=== PATIENT | female | born 1995 | race Caucasian/White ===

== ENCOUNTER 2017-07-30 10:53 | Emergency (ER) | payer OTHER ==
[2017-07-30 11:18] LABS: URINE HCG POC HCG NEGATIVE (Negative)
[2017-07-30 11:46] LABS: BASO % 0 % (0-3); EOS % 0 % (0-3); HEMATOCRIT 36.6 % (36.0-47.0); HEMOGLOBIN 11.8 g/dL (12.0-15.5); LYMPH # 0.5 x10^3/uL (1.0-4.8); LYMPH % 3 % (24-48); MEAN CORPUSCULAR HEMOGLOBIN 25 pg (25-35); MEAN CORPUSCULAR HGB CONC 32 g/dL (31-37); MEAN CORPUSCULAR VOLUME 77 fL (79-100); MONO % 6 % (0-9); NEUT % 91 % (31-73); PLATELET COUNT 246 x10^3/uL (140-400); RED BLOOD COUNT 4.74 x10^6/uL (3.50-5.40); RED CELL DISTRIBUTION WIDTH 18.4 % (11.5-14.5)
[2017-07-30 11:47] LABS: ADD MAN DIFF? YES
[2017-07-30 11:48] LABS: BILIRUBIN,URINE NEGATIVE (NEG); GLUCOSE,URINE NEGATIVE (NEG); NITRITE,URINE POSITIVE (NEG); PROTEIN,URINE 100 mg/dL (NEG-TRACE); UROBILINOGEN,URINE 0.2 mg/dL (0.2 mg/dL)
[2017-07-30 11:56] LABS: BACTERIA,URINE MANY /HPF (0-FEW); SQUAMOUS EPITHELIAL CELL,UR MOD /LPF; WBC,URINE TNTC /HPF (0-4)
[2017-07-30 11:57] LABS: ANION GAP 13 (6-14); BLOOD UREA NITROGEN 8 mg/dL (7-20); BUN/CREATININE RATIO 8 (6-20); CALCIUM 8.7 mg/dL (8.5-10.1); CARBON DIOXIDE 25 mmol/L (21-32); CHLORIDE 100 mmol/L (98-107); GLUCOSE 151 mg/dL (70-99); POTASSIUM 3.8 mmol/L (3.5-5.1); SODIUM 138 mmol/L (136-145)
[2017-07-30 12:02] LABS: ALBUMIN 3.9 g/dL (3.4-5.0); ALK PHOS 104 U/L (46-116); ALT (SGPT) 27 U/L (14-59); AST (SGOT) 17 U/L (15-37); TOTAL BILIRUBIN 0.8 mg/dL (0.2-1.0); TOTAL PROTEIN 7.8 g/dL (6.4-8.2)
[2017-07-30] MEDS: ONDANSETRON PF 4 MG/2 ML VIAL. IV (13:00)
[2017-07-30] MEDS: IV NORMAL SALINE 1000ML BAG 1,000 ML IV ×2 (13:00→14:20)
[2017-07-30 13:19] LABS: ANISOCYTOSIS SLIGHT; MICROCYTOSIS SLIGHT; PLT ESTIMATE ADEQUATE (ADEQUATE)
[2017-07-30 13:20] LABS: OVALOCYTES FEW
[2017-07-30] MEDS: ACETAMINOPHEN 500 MG TABLET PO (14:25)
== END 2017-07-30 15:49 | disposition home or self-care (01) ==
LOC: ER 10:53
DX: N12 Tubulo-interstitial nephritis, not specified as acute or chronic (principal); N39.0 Urinary tract infection, site not specified
CPT/HCPCS: 36415; 80053; 81001; 81025; 85007; 85025; 87086; 87186; 96361; 96365; 96375; 99284-25; J0690; J2405; J7030

== ENCOUNTER 2018-04-20 18:03 | Emergency (ER) | payer SELFPAY ==
[~2018-04-20] VITALS: Ht 167.6 cm; Wt 45.4 kg
[~2018-04-20 18:03] MED LIST: CIPR500T94 PO; DOCU-109 PO; IBUP200T44 PO; ONDA4TAB10 SL; OXYC-323 PO; SERT100T PO
[2018-04-20] MEDS ORDERED: ONDANSETRON PF 4 MG/2 ML VIAL. IV ONE (19:00)
[2018-04-20] MEDS ORDERED: IV NORMAL SALINE 1000ML BAG 1,000 ML IV ONE (19:00)
[2018-04-20] MEDS ORDERED: ACETAMINOPHEN 500 MG TABLET PO ONE (19:30)
[2018-04-20 19:50] LABS: BASO % 0 % (0-3); EOS % 0 % (0-3); HEMATOCRIT 39.9 % (36.0-47.0); LYMPH # 0.8 x10^3/uL (1.0-4.8); LYMPH % 8 % (24-48); MEAN CORPUSCULAR HEMOGLOBIN 31 pg (25-35); MEAN CORPUSCULAR HGB CONC 35 g/dL (31-37); MEAN CORPUSCULAR VOLUME 89 fL (79-100); MONO # 0.8 x10^3/uL (0.0-1.1); MONO % 8 % (0-9); NEUT # 9.5 x10^3uL (1.8-7.7); NEUT % 85 % (31-73); PLATELET COUNT 209 x10^3/uL (140-400); RED CELL DISTRIBUTION WIDTH 12.7 % (11.5-14.5); WHITE BLOOD COUNT 11.2 x10^3/uL (4.0-11.0)
[2018-04-20 19:58] LABS: CALCIUM 9.3 mg/dL (8.5-10.1); CREATININE 0.8 mg/dL (0.6-1.0); GFR 89.7; POTASSIUM 3.7 mmol/L (3.5-5.1)
[2018-04-20 20:03] LABS: ALBUMIN 3.5 g/dL (3.4-5.0); ALBUMIN/GLOBULIN RATIO 0.8 (1.0-1.7); TOTAL PROTEIN 7.7 g/dL (6.4-8.2)
[2018-04-20 20:31] LABS: BILIRUBIN,URINE NEGATIVE (NEG); CLARITY,URINE CLEAR; COLOR,URINE YELLOW; NITRITE,URINE POSITIVE (NEG); PH,URINE 6.5; PROTEIN,URINE 30 mg/dL (NEG-TRACE)
[2018-04-20 20:37] LABS: BACTERIA,URINE MANY /HPF (0-FEW); RBC,URINE OCC /HPF (0-2); SQUAMOUS EPITHELIAL CELL,UR MANY /LPF; WBC,URINE >40 /HPF (0-4)
[2018-04-20 21:00] VITALS: BP 104/57
--- NOTE | 2018-04-20 21:04 | RAD ---
CT abdomen and pelvis without contrast: Reason for examination: Flank pain. Helical images were obtained through the abdomen pelvis with no intravenous or oral contrast administered. Reconstruction was performed in sagittal and coronal planes. The examination is compromised by streak artifact from right and screws in the thoracolumbar spine. Exposure: One or more of the following individualized dose reduction techniques were utilized for this examination: 1. Automated exposure control 2. Adjustment of the mA and/or kV according to patient size 3. Use of iterative reconstruction technique. The lung bases are clear. The heart size is normal with no pericardial effusion. No abnormalities seen at the liver, spleen, adrenal glands or pancreas. The kidneys show no renal masses, renal calculi, hydronephrosis or evidence of obstructive uropathy. The intestinal tract does not appear to be abnormally distended and no abnormal wall thickening is seen. No diverticulosis or diverticulitis is evident. The bladder is not distended. IUD is seen in the uterus. No adnexal masses are seen. The limited amount of intra-abdominal fat the appendix is not identified. There is a thoracolumbar scoliosis with rods and screws present. No acute bony abnormalities are seen. IMPRESSION: Limited examination due to streak artifact from hardware in the thoracolumbar spine region. No renal calculi, hydronephrosis or evidence of obstructive uropathy. No other focal abnormality seen in the abdomen or pelvis. Electronically signed by: Ying Sood MD (04/20/2018 9:01 PM) [facility]
--- NOTE | 2018-04-20 21:19 | PHYS DOC ---
Past Medical History Past Medical History: Other Additional Past Medical Histor: scoliosis Past Surgical History: Other Additional Past Surgical Histo: SCOLIOSIS SX, hernia sx Alcohol Use: Occasionally Drug Use: Marijuana Adult General Chief Complaint Chief Complaint: Congestion HPI HPI Patient is 23-year-old female that presents for evaluation of fever, cough, left ear pain, and bilateral flank pain. She reports symptoms started yesterday. She denies abdominal or chest pain. Review of Systems Review of Systems Eyes: Denies change in visual acuity, redness, or eye pain [] HENT: Denies nasal congestion or sore throat [] Respiratory: Denies cough or shortness of breath [] Cardiovascular: No additional information not addressed in HPI [] GI: Denies abdominal pain, nausea, vomiting, bloody stools or diarrhea [] : Denies dysuria or hematuria [] Neurologic: Denies headache, focal weakness or sensory changes [] Endocrine: Denies polyuria or polydipsia [] All other systems were reviewed and found to be within normal limits, except as documented in this note. Current Medications Current Medications Current Medications Medications (Trade) Dose Ordered Sig/Yoana Start Time Stop Time Status Last Admin Dose Admin Acetaminophen (Tylenol) 1,000 mg 1X ONCE 04/20/18 19:30 04/20/18 19:35 DC 04/20/18 19:51 1,000 MG Ondansetron HCl (Zofran) 4 mg 1X ONCE 04/20/18 19:00 04/20/18 19:04 DC 04/20/18 19:51 4 MG Sodium Chloride 1,000 ml @ 1,000 mls/hr 1X ONCE 04/20/18 19:00 04/20/18 19:59 DC 04/20/18 19:50 1,000 MLS/HR Allergies Allergies Allergies Coded Allergies Type Severity Reaction Last Updated Verified No Known Drug Allergies 06/17/14 No Physical Exam Physical Exam Constitutional: Well developed, well nourished, no acute distress, non-toxic appearance. [] HENT: Normocephalic, atraumatic, bilateral external ears normal, oropharynx moist, no oral exudates, nose normal. [] Eyes: PERRLA, EOMI, conjunctiva normal, no discharge. [] Neck: Normal range of motion, no tenderness, supple, no stridor. [] Cardiovascular:Heart rate regular rhythm, no murmur [] Lungs & Thorax: Bilateral breath sounds clear to auscultation [] Abdomen: Bowel sounds normal, soft, no tenderness, no masses, no pulsatile masses. [] Skin: Warm, dry, no erythema, no rash. [] Back: CVA tenderness bilaterally[] Extremities: No tenderness, no cyanosis, no clubbing, ROM intact, no edema. [] Neurologic: Alert and oriented X 3, normal motor function, normal sensory function, no focal deficits noted. [] Psychologic: Affect normal, judgement normal, mood normal. [] Current Patient Data Vital Signs Vital Signs Date Time Temp Pulse Resp B/P (MAP) Pulse Ox O2 Delivery O2 Flow Rate FiO2 04/20/18 19:00 100.8 115 18 134/75 (94) 97 Room Air 100.8 Lab Values Laboratory Tests Test 04/20/18 19:43 04/20/18 20:24 04/20/18 20:25 White Blood Count 11.2 x10^3/uL (4.0-11.0) H Red Blood Count 4.50 x10^6/uL (3.50-5.40) Hemoglobin 14.0 g/dL (12.0-15.5) Hematocrit 39.9 % (36.0-47.0) Mean Corpuscular Volume 89 fL (79-100) Mean Corpuscular Hemoglobin 31 pg (25-35) Mean Corpuscular Hemoglobin Concent 35 g/dL (31-37) Red Cell Distribution Width 12.7 % (11.5-14.5) Platelet Count 209 x10^3/uL (140-400) Neutrophils (%) (Auto) 85 % (31-73) H Lymphocytes (%) (Auto) 8 % (24-48) L Monocytes (%) (Auto) 8 % (0-9) Eosinophils (%) (Auto) 0 % (0-3) Basophils (%) (Auto) 0 % (0-3) Neutrophils # (Auto) 9.5 x10^3uL (1.8-7.7) H Lymphocytes # (Auto) 0.8 x10^3/uL (1.0-4.8) L Monocytes # (Auto) 0.8 x10^3/uL (0.0-1.1) Eosinophils # (Auto) 0.0 x10^3/uL (0.0-0.7) Basophils # (Auto) 0.0 x10^3/uL (0.0-0.2) Sodium Level 135 mmol/L (136-145) L Potassium Level 3.7 mmol/L (3.5-5.1) Chloride Level 97 mmol/L (98-107) L Carbon Dioxide Level 27 mmol/L (21-32) Anion Gap 11 (6-14) Blood Urea Nitrogen 6 mg/dL (7-20) L Creatinine 0.8 mg/dL (0.6-1.0) Estimated GFR (Cockcroft-Gault) 89.7 BUN/Creatinine Ratio 8 (6-20) Glucose Level 101 mg/dL (70-99) H Calcium Level 9.3 mg/dL (8.5-10.1) Total Bilirubin 1.0 mg/dL (0.2-1.0) Aspartate Amino Transferase (AST) 18 U/L (15-37) Alanine Aminotransferase (ALT) 17 U/L (14-59) Alkaline Phosphatase 73 U/L (46-116) Total Protein 7.7 g/dL (6.4-8.2) Albumin 3.5 g/dL (3.4-5.0) Albumin/Globulin Ratio 0.8 (1.0-1.7) L POC Urine HCG, Qualitative Hcg negative (Negative) Urine Collection Type Unknown Urine Color Yellow Urine Clarity Clear Urine pH 6.5 Urine Specific [place] 1.010 Urine Protein 30 mg/dL (NEG-TRACE) Urine Glucose (UA) Negative mg/dL (NEG) Urine Ketones (Stick) >=80 mg/dL (NEG) Urine Blood Trace (NEG) Urine Nitrite Positive (NEG) Urine Bilirubin Negative (NEG) Urine Urobilinogen Dipstick 1.0 mg/dL (0.2 mg/dL) Urine Leukocyte Esterase Moderate (NEG) Urine RBC Occ /HPF (0-2) Urine WBC >40 /HPF (0-4) Urine Squamous Epithelial Cells Many /LPF Urine Transitional Epithelial Cells Occ /LPF Urine Renal Epithelial Cells Occ /LPF Urine Bacteria Many /HPF (0-FEW) Urine Mucus Mod /LPF Laboratory Tests 04/20/18 19:43 Laboratory Tests 04/20/18 19:43 EKG EKG [] Radiology/Procedures Radiology/Procedures Wet read chest x-ray by myself and Dr. Sandra, concern for possible developing infiltrates in the right lung.[] PROCEDURE: CT ABDOMEN PELVIS WO CONTRAST CT abdomen and pelvis without contrast: Reason for examination: Flank pain. Helical images were obtained through the abdomen pelvis with no intravenous or oral contrast administered. Reconstruction was performed in sagittal and coronal planes. The examination is compromised by streak artifact from right and screws in the thoracolumbar spine. Exposure: One or more of the following individualized dose reduction techniques were utilized for this examination: 1. Automated exposure control 2. Adjustment of the mA and/or kV according to patient size 3. Use of iterative reconstruction technique. The lung bases are clear. The heart size is normal with no pericardial effusion. No abnormalities seen at the liver, spleen, adrenal glands or pancreas. The kidneys show no renal masses, renal calculi, hydronephrosis or evidence of obstructive uropathy. The intestinal tract does not appear to be abnormally distended and no abnormal wall thickening is seen. No diverticulosis or diverticulitis is evident. The bladder is not distended. IUD is seen in the uterus. No adnexal masses are seen. The limited amount of intra-abdominal fat the appendix is not identified. There is a thoracolumbar scoliosis with rods and screws present. No acute bony abnormalities are seen. IMPRESSION: Limited examination due to streak artifact from hardware in the thoracolumbar spine region. No renal calculi, hydronephrosis or evidence of obstructive uropathy. No other focal abnormality seen in the abdomen or pelvis. Electronically signed by: Ying Sood MD (04/20/2018 9:01 PM) [facility] Course & Med Decision Making Course & Med Decision Making Pertinent Labs and Imaging studies reviewed. (See chart for details) [Concern for developing pneumonia in the right lung field, patient is placed on a Z-Philip, recommend close follow-up with primary care doctor in 2-3 days, return to ER for new or worsening symptoms. Dragon Disclaimer Dragon Disclaimer This electronic medical record was generated, in whole or in part, using a voice recognition dictation system. Departure Departure Impression: Primary Impression: Pneumonia Additional Impression: Otalgia of left ear Disposition: HOME, SELF-CARE Condition: STABLE Referrals: NO PCP (PCP) Patient Instructions: Otalgia, Pneumonia, Adult Scripts Azithromycin (AZITHROMYCIN PACKET) 1 Gm Packet 1 PACKET PO ONCE, #1 PACKET 0 Refills Prov: CONCHA PIZANO APRN 04/20/18 Problem Qualifiers CONCHA PIZANO APRN Apr 20, 2018 21:19
[2018-04-20] MEDS ORDERED: AZIT1PAC9 PO (21:22)
--- NOTE | 2018-04-21 08:38 | RAD ---
CHEST PA LATERAL Clinical indications: EAR ACHES AND SIDE PAIN. HX OF 2 KIDNEY INFECTIONS THIS YEAR. Cough and fever. COMPARISON: None available. Findings: No acute lung infiltrate or pleural effusion or pulmonary edema or lung mass or pneumothorax is seen. The heart size, pulmonary vasculature, mediastinum and both nixon are unremarkable. Thoracic and lumbar De Souza rods and transpedicular screws are in place. Impression: No acute radiographic abnormality is seen. Electronically signed by: Travis Verma MD (04/21/2018 8:34 AM) [facility]
[2018-04-21] MEDS ORDERED: CEPH-264 PO (19:19)
== END 2018-04-20 21:36 | disposition home or self-care (01) ==
LOC: ER 18:03
DX: J18.9 Pneumonia, unspecified organism (principal); H92.02 Otalgia, left ear; R10.9 Unspecified abdominal pain
CPT/HCPCS: 36415; 71046; 74176; 80053; 81001; 81025; 85025; 87086; 96374; 99285; J2405; J7030

== ENCOUNTER 2018-04-21 15:18 | Emergency (ER) | payer SELFPAY ==
[~2018-04-21] VITALS: Ht 167.6 cm; Wt 45.4 kg
[~2018-04-21 15:18] MED LIST changes: +AZIT1PAC9 PO
[2018-04-21 18:11] LABS: BILIRUBIN,URINE NEGATIVE (NEG); CLARITY,URINE CLEAR; COLOR,URINE YELLOW; NITRITE,URINE NEGATIVE (NEG); PH,URINE 6.5; PROTEIN,URINE NEGATIVE (NEG-TRACE)
[2018-04-21 18:19] LABS: RBC,URINE OCC /HPF (0-2)
[2018-04-21 18:20] LABS: BACTERIA,URINE MODERATE /HPF (0-FEW); SQUAMOUS EPITHELIAL CELL,UR MANY /LPF
[2018-04-21] MEDS ORDERED: CEPH-264 PO (19:19)
--- NOTE | 2018-04-21 19:20 | PHYS DOC ---
Past Medical History Past Medical History: Pneumonia, Other Additional Past Medical Histor: scoliosis Past Surgical History: Other Additional Past Surgical Histo: SCOLIOSIS SX, hernia sx Smoking: Less than 1pk/day Alcohol Use: Occasionally Drug Use: Marijuana Adult General Chief Complaint Chief Complaint: MULTIPLE COMPLAINTS HPI HPI Patient is a 23 year old female who presents with left flank and left lower quadrant abdominal pain. Patient notes that the pain started on but became worse today. Patient describes the pain as sharp without severity 6 out of 10, and notes that the pain is worse in the morning but denies any aggravating or alleviating factors. She notes that the pain radiates to her left flank. Patient notes that she has had some associated nausea and nonbloody emesis. Patient denies any dysuria, urgency or frequency. Patient notes that she has had 2 episodes of pyelonephritis this year. Patient notes that she also had some left ear pain yesterday but that this has resolved today. Patient was seen in the emergency department yesterday for similar symptoms and diagnosed with suspected pneumonia and prescribed azithromycin. Review of Systems Review of Systems Constitutional: Denies fever or chills [] Eyes: Denies change in visual acuity, redness, or eye pain [] HENT: Denies nasal congestion or sore throat [] Respiratory: Notes cough denies shortness of breath [] Cardiovascular: Chest pain or palpitations[] GI: Notes abdominal pain, nausea, vomiting, denies bloody stools or diarrhea [] : Denies dysuria or hematuria [] Musculoskeletal: Denies back pain or joint pain [] Integument: Denies rash or skin lesions [] Neurologic: Denies headache, focal weakness or sensory changes [] Complete systems were reviewed and found to be within normal limits, except as documented in this note. Family History Family History Noncontributory Current Medications Current Medications Current Medications Medications (Trade) Dose Ordered Sig/Yoana Start Time Stop Time Status Last Admin Dose Admin Cephalexin HCl (Keflex) 500 mg 1X ONCE 04/21/18 19:30 04/21/18 19:31 DC 04/21/18 20:07 500 MG Allergies Allergies Allergies Coded Allergies Type Severity Reaction Last Updated Verified No Known Drug Allergies 06/17/14 No Physical Exam Physical Exam Constitutional: Well developed, well nourished, no acute distress, non-toxic appearance. [] HENT: Normocephalic, atraumatic, bilateral external ears normal, oropharynx moist, no oral exudates, nose normal. [] Eyes: PERRLA, EOMI, conjunctiva normal, no discharge. [] Neck: Normal range of motion, no tenderness, supple, no stridor. [] Cardiovascular:Heart rate regular rhythm, no murmur [] Lungs & Thorax: Bilateral breath sounds clear to auscultation [] Abdomen: Bowel sounds normal, soft, no tenderness, no masses, no pulsatile masses. [] Skin: Warm, dry, no erythema, no rash. [] Back: No tenderness, no CVA tenderness. [] Extremities: No tenderness, no cyanosis, no clubbing, ROM intact, no edema. [] Neurologic: Alert and oriented X 3, normal motor function, normal sensory function, no focal deficits noted. [] Psychologic: Affect normal, judgement normal, mood normal. [] Current Patient Data Vital Signs Vital Signs Date Time Temp Pulse Resp B/P (MAP) Pulse Ox O2 Delivery O2 Flow Rate FiO2 04/21/18 18:11 90 18 118/70 (86) 99 Room Air 04/21/18 17:37 99.5 99.5 Lab Values Laboratory Tests Test 04/21/18 17:46 04/21/18 17:49 Urine Collection Type Void Urine Color Yellow Urine Clarity Clear Urine pH 6.5 Urine Specific [place] <=1.005 Urine Protein Negative mg/dL (NEG-TRACE) Urine Glucose (UA) Negative mg/dL (NEG) Urine Ketones (Stick) >=80 mg/dL (NEG) Urine Blood Small (NEG) Urine Nitrite Negative (NEG) Urine Bilirubin Negative (NEG) Urine Urobilinogen Dipstick 1.0 mg/dL (0.2 mg/dL) Urine Leukocyte Esterase Moderate (NEG) Urine RBC Occ /HPF (0-2) Urine WBC 11-20 /HPF (0-4) Urine Squamous Epithelial Cells Many /LPF Urine Bacteria Moderate /HPF (0-FEW) POC Urine HCG, Qualitative Hcg negative (Negative) EKG EKG [] Radiology/Procedures Radiology/Procedures [] Course & Med Decision Making Course & Med Decision Making 3-year-old female presenting with left lower quadrant abdominal and flank pain. Patient was seen in the emergency department yesterday for the same symptoms, but returned today for progression of symptoms. Patient received a CT abdomen and pelvis, and urinalysis yesterday with other lab work. Patient was diagnosed with a suspected developing left lower lobe pneumonia. Patient was prescribed azithromycin. Urinalysis from yesterday showed evidence of contamination so treatment for UTI was not begun. In the emergency department today another urinalysis was obtained and evaluated and today the urinalysis showed that the patient does indeed have a UTI. Patient was prescribed Keflex and given one dose in the emergency department.Patient stable for discharge with outpatient follow-up with PCP. Discussed findings and plan with patient, who acknowledge understanding and agreement.[] Dragon Disclaimer Dragon Disclaimer This electronic medical record was generated, in whole or in part, using a voice recognition dictation system. Departure Departure Impression: Primary Impression: Pyelonephritis Disposition: 01 HOME, SELF-CARE Condition: STABLE Referrals: NO PCP (PCP) Patient Instructions: Pyelonephritis, Adult, [id number] Scripts Cephalexin (KEFLEX) 500 Mg Capsule 500 MG PO TID for 7 Days, #21 CAP Prov: NITESH VENCES DO 04/21/18 NITESH VENCES DO Apr 21, 2018 19:20
[2018-04-21] MEDS ORDERED: CEPHALEXIN 250 MG CAPSULE. PO ONE (19:30)
[2018-04-21 19:41] VITALS: BP 136/82
== END 2018-04-21 20:11 | disposition home or self-care (01) ==
LOC: ER 15:18
DX: N12 Tubulo-interstitial nephritis, not specified as acute or chronic (principal); F17.210 Nicotine dependence, cigarettes, uncomplicated
CPT/HCPCS: 81001; 81025; 87086; 99284

== ENCOUNTER 2018-11-11 13:49 | Emergency (ER) | payer OTHER ==
[~2018-11-11] VITALS: Ht 167.6 cm; Wt 52.2 kg
[~2018-11-11 13:49] MED LIST changes: +CEPH-264 PO; -OXYC-323 PO; +OXYC1TAB15 PO
[2018-11-11] MEDS ORDERED: IV NORMAL SALINE 1000ML BAG 1,000 ML IV ONE (15:15)
[2018-11-11 15:21] LABS: BILIRUBIN,URINE NEGATIVE (NEG); CLARITY,URINE CLEAR; COLOR,URINE YELLOW; NITRITE,URINE NEGATIVE (NEG); PH,URINE 6.5; PROTEIN,URINE NEGATIVE (NEG-TRACE)
--- NOTE | 2018-11-11 15:25 | PHYS DOC ---
Past Medical History Past Medical History: Anxiety, Pneumonia, Other Additional Past Medical Histor: scoliosis Past Surgical History: Other Additional Past Surgical Histo: SCOLIOSIS SX, hernia sx Alcohol Use: Occasionally Drug Use: Marijuana Adult General Chief Complaint Chief Complaint: ANXIETY/PANIC ATTACK HPI HPI 23-year-old female presents to ER for complaints of increased anxiety over the past couple of days. She reports she has had increased stressors with finances. She reports over the past couple of days she has had decreased appetite, difficulty sleeping, episodes of crying and panic attacks. She denies any recent illness, urinary symptoms, chest pain or palpitations, or fever. Patient has boyfriend who she reports also has history of anxiety and is prescribed Xanax which she does take from time to time when her anxiety increases. She denies taking any Xanax today. She reports he is supportive denies any physical abuse stating she feels safe with him. Patient states she has 2 young children ages 3 and 1. LMP last month reporting she has irregular cycles and does have an IUD. She is a daily smoker and reports occasional alcohol 2-3 times per week. She reports she does smoke marijuana and did this morning. She reports she does take pain medication for chronic back pain as she has to rods in her back from previous surgery. She reports she will take muscle relaxers and Percocet for her pain as needed. She denies pain meds today. She denies any other illicit drugs. Patient reports she has had anxiety since she was a teenager. She denies any suicidal ideations or past suicidal attempts. Review of Systems Review of Systems Constitutional: Denies fever or chills. Reports having difficulty sleeping Eyes: Denies change in visual acuity, redness, or eye pain [] HENT: Denies nasal congestion or sore throat [] Respiratory: Denies cough or shortness of breath [] Cardiovascular: No additional information not addressed in HPI [] GI: Denies abdominal pain, nausea, vomiting, bloody stools or diarrhea. Reports less appetite : Denies dysuria or hematuria [] Musculoskeletal: Denies back pain or joint pain [] Integument: Denies rash or skin lesions [] Neurologic: Denies headache, focal weakness or sensory changes [] Psych: Reports anxiety/stress denying SI or any self harm All other systems were reviewed and found to be within normal limits, except as documented in this note. Current Medications Current Medications Current Medications Medications (Trade) Dose Ordered Sig/Yoana Start Time Stop Time Status Last Admin Dose Admin Sodium Chloride 1,000 ml @ 1,000 mls/hr 1X ONCE 11/11/18 15:15 11/11/18 16:14 DC 11/11/18 14:45 1,000 MLS/HR Allergies Allergies Allergies Coded Allergies Type Severity Reaction Last Updated Verified No Known Drug Allergies 06/17/14 No Physical Exam Physical Exam Constitutional: Well developed, well nourished, no acute distress, non-toxic appearance. [] HENT: Normocephalic, atraumatic, mucous membranes pink/dry, nose normal. [] Eyes: Pupils equal, no nystagmus, conjunctiva normal, no discharge. [] Neck: Normal range of motion, supple, no stridor. [] Cardiovascular: Heart rate regular rhythm, no murmur [] Lungs & Thorax: Bilateral breath sounds clear to auscultation. Resp. equal/ nonlabored Abdomen: Bowel sounds normal, soft, no tenderness Skin: Warm, dry, no erythema, no rash. [] Back: No tenderness, no CVA tenderness. [] Extremities: No tenderness, no cyanosis, no clubbing, ROM intact, no edema. [] Neurologic: Alert and oriented X 3, normal motor function, normal sensory function, no focal deficits noted. [] Psychologic: Affect normal, judgement normal, tearful- no uncontrollable behavior. Cooperative during exam. Denies SI Current Patient Data Vital Signs Vital Signs Date Time Temp Pulse Resp B/P (MAP) Pulse Ox O2 Delivery O2 Flow Rate FiO2 11/11/18 15:50 74 15 125/86 (99) 99 Room Air 11/11/18 14:10 98.7 98.7 Lab Values Laboratory Tests Test 11/11/18 14:20 11/11/18 14:24 11/11/18 15:35 Urine Collection Type Unknown Urine Color Yellow Urine Clarity Clear Urine pH 6.5 Urine Specific [place] 1.025 Urine Protein Negative mg/dL (NEG-TRACE) Urine Glucose (UA) Negative mg/dL (NEG) Urine Ketones (Stick) Negative mg/dL (NEG) Urine Blood Negative (NEG) Urine Nitrite Negative (NEG) Urine Bilirubin Negative (NEG) Urine Urobilinogen Dipstick 1.0 mg/dL (0.2 mg/dL) Urine Leukocyte Esterase Negative (NEG) Urine RBC 0 /HPF (0-2) Urine WBC 1-4 /HPF (0-4) Urine Squamous Epithelial Cells Many /LPF Urine Bacteria Few /HPF (0-FEW) Urine Mucus Marked /LPF Urine Opiates Screen Neg (NEG) Urine Methadone Screen Neg (NEG) Urine Barbiturates Neg (NEG) Urine Phencyclidine Screen Neg (NEG) Urine Amphetamine/Methamphetamine Neg (NEG) Urine Benzodiazepines Screen Pos (NEG) Urine Cocaine Screen Neg (NEG) Urine Cannabinoids Screen Pos (NEG) Urine Ethyl Alcohol Pos (NEG) POC Urine HCG, Qualitative Hcg negative (Negative) White Blood Count 8.5 x10^3/uL (4.0-11.0) Red Blood Count 4.80 x10^6/uL (3.50-5.40) Hemoglobin 15.0 g/dL (12.0-15.5) Hematocrit 44.0 % (36.0-47.0) Mean Corpuscular Volume 92 fL (79-100) Mean Corpuscular Hemoglobin 31 pg (25-35) Mean Corpuscular Hemoglobin Concent 34 g/dL (31-37) Red Cell Distribution Width 13.7 % (11.5-14.5) Platelet Count 297 x10^3/uL (140-400) Neutrophils (%) (Auto) 73 % (31-73) Lymphocytes (%) (Auto) 21 % (24-48) L Monocytes (%) (Auto) 5 % (0-9) Eosinophils (%) (Auto) 0 % (0-3) Basophils (%) (Auto) 1 % (0-3) Neutrophils # (Auto) 6.2 x10^3uL (1.8-7.7) Lymphocytes # (Auto) 1.8 x10^3/uL (1.0-4.8) Monocytes # (Auto) 0.4 x10^3/uL (0.0-1.1) Eosinophils # (Auto) 0.0 x10^3/uL (0.0-0.7) Basophils # (Auto) 0.0 x10^3/uL (0.0-0.2) Sodium Level 141 mmol/L (136-145) Potassium Level 4.4 mmol/L (3.5-5.1) Chloride Level 104 mmol/L (98-107) Carbon Dioxide Level 28 mmol/L (21-32) Anion Gap 9 (6-14) Blood Urea Nitrogen 7 mg/dL (7-20) Creatinine 0.8 mg/dL (0.6-1.0) Estimated GFR (Cockcroft-Gault) 89.7 BUN/Creatinine Ratio 9 (6-20) Glucose Level 84 mg/dL (70-99) Calcium Level 8.9 mg/dL (8.5-10.1) Magnesium Level 1.8 mg/dL (1.8-2.4) Total Bilirubin 0.5 mg/dL (0.2-1.0) Aspartate Amino Transferase (AST) 22 U/L (15-37) Alanine Aminotransferase (ALT) 17 U/L (14-59) Alkaline Phosphatase 107 U/L (46-116) Total Protein 7.6 g/dL (6.4-8.2) Albumin 4.0 g/dL (3.4-5.0) Albumin/Globulin Ratio 1.1 (1.0-1.7) Ethyl Alcohol Level < 10 mg/dL (0-10) Laboratory Tests 11/11/18 15:35 Laboratory Tests 11/11/18 15:35 EKG EKG [] Radiology/Procedures Radiology/Procedures [] Course & Med Decision Making Course & Med Decision Making Pertinent Labs reviewed. (See chart for details) 1520: Spoke with Fran with [facility] and discussed pt's case and he is going to come to ER and discuss options for outpt therapy and eval. pt. 1615: Fran walter/[facility] came into eval pt. He reports he is providing pt with options for outpt therapy. He reported pt had reported to him she had been drinking [place] more for tx. Her alcohol level was <10. She was + for benzos and marijuana- which she reported initially she had been using. Other test results were normal limits. UA negative for infection and UCG was negative. Test results were discussed with patient. Patient reports following IV fluids she is feeling better and is comfortable with home discharge with plans to follow-up outpatient. Continues to deny any suicidal ideations. She is in no visible distress at time of discharge discussion. In-depth conversation had with patient regarding alcohol cessation, marijuana cessation, and signs and symptoms to return to ER for. Discharge instructions were discussed. Pt encouraged to increase fluid intake and eat well-balanced meals. Patient states she has been using [id number] melatonin from time to time for sleep aid. Patient advised on using that medication as directed on container. Dragon Disclaimer Dragon Disclaimer This electronic medical record was generated, in whole or in part, using a voice recognition dictation system. Departure Departure Impression: Primary Impression: Anxiety Additional Impression: Stress Disposition: 01 HOME, SELF-CARE Condition: STABLE Referrals: NO PCP (PCP) Patient Instructions: Anxiety and Panic Attacks Additional Instructions: Drink plenty of water and eat well-balanced meals. Avoid alcohol and drug use as this may increase your anxiety and cause other medical issues. Follow-up with the clinic as discussed with Fran in the Emergency Department. Return to the emergency Department with any suicidal ideations or call 911 for assistance. Problem Qualifiers OSEI WOODRUFF APRN Nov 11, 2018 15:25
[2018-11-11 15:29] LABS: BARBITURATES NEG (NEG); BENZODIAZEPINES POS (NEG); CANNABINOIDS POS (NEG); COCAINE NEG (NEG); METHADONE NEG (NEG); OPIATES NEG (NEG); PHENCYCLIDINE NEG (NEG)
[2018-11-11 15:35] LABS: BACTERIA,URINE FEW /HPF (0-FEW); RBC,URINE 0 /HPF (0-2); SQUAMOUS EPITHELIAL CELL,UR MANY /LPF
[2018-11-11 15:36] LABS: AMPHETAMINE/METHAMPHETAMINE NEG (NEG)
[2018-11-11 15:41] LABS: BASO % 1 % (0-3); EOS % 0 % (0-3); LYMPH # 1.8 x10^3/uL (1.0-4.8); LYMPH % 21 % (24-48); MEAN CORPUSCULAR HEMOGLOBIN 31 pg (25-35); MEAN CORPUSCULAR HGB CONC 34 g/dL (31-37); MEAN CORPUSCULAR VOLUME 92 fL (79-100); MONO # 0.4 x10^3/uL (0.0-1.1); MONO % 5 % (0-9); NEUT # 6.2 x10^3uL (1.8-7.7); NEUT % 73 % (31-73); PLATELET COUNT 297 x10^3/uL (140-400); RED CELL DISTRIBUTION WIDTH 13.7 % (11.5-14.5); WHITE BLOOD COUNT 8.5 x10^3/uL (4.0-11.0)
[2018-11-11 15:50] VITALS: BP 125/86
[2018-11-11 15:58] LABS: CALCIUM 8.9 mg/dL (8.5-10.1); CREATININE 0.8 mg/dL (0.6-1.0); GFR 89.7; POTASSIUM 4.4 mmol/L (3.5-5.1)
[2018-11-11 16:03] LABS: ALBUMIN/GLOBULIN RATIO 1.1 (1.0-1.7); MAGNESIUM 1.8 mg/dL (1.8-2.4); TOTAL BILIRUBIN 0.5 mg/dL (0.2-1.0); TOTAL PROTEIN 7.6 g/dL (6.4-8.2)
== END 2018-11-11 17:12 | disposition home or self-care (01) ==
LOC: ER 13:49
DX: F41.0 Panic disorder [episodic paroxysmal anxiety] (principal); Z73.3 Stress, not elsewhere classified
CPT/HCPCS: 36415; 80053; 80307; 81001; 81025; 83735; 85025; 99284; G0480; J7030